=== PATIENT | female | born 1955 | race Caucasian/White ===

== ENCOUNTER 2018-02-26 11:56 | Emergency (ER) | payer OTHER ==
[2018-02-26 12:41] LABS: ADD MAN DIFF? NO
[2018-02-26 12:45] LABS: WHITE BLOOD COUNT 10.2 10^3/ul (4.8-10.8)
[2018-02-26 12:45] LABS: BASOPHILS % 0.3 % (0.0-2.0); EOSINOPHILS # 0.1 10^3/ul (0.0-0.5); EOSINOPHILS % 1.2 % (0.0-7.0); HEMATOCRIT 33.3 % (37.0-47.0); HEMOGLOBIN 10.7 g/dl (12.0-16.0); LYMPHOCYTES # 2.5 10^3/ul (0.8-2.9); MEAN CORPUSCULAR HEMOGLOBIN 28.6 pg (29.0-33.0); MEAN CORPUSCULAR HGB CONC 32.1 g/dl (32.0-37.0); MEAN PLATELET VOLUME 9.9 fl (7.4-10.4); MONOCYTE # 0.5 10^3/ul (0.3-0.9); MONOCYTES % 5.1 % (0.0-11.0); NEUTROPHIL # 7.1 10^3/ul (1.6-7.5); PLATELET COUNT 386 10^3/UL (140-415); RED BLOOD COUNT 3.74 10^6/ul (4.20-5.40); RED CELL DISTRIBUTION WIDTH 14.6 % (11.5-14.5)
[2018-02-26 13:17] LABS: INR 1.07; PT RATIO 1.1
[2018-02-26 13:18] LABS: PARTIAL THROMBOPLASTIN TIME 36.5 Sec (25.0-35.0)
[2018-02-26 13:19] LABS: ANION GAP 13 (8-16); BLOOD UREA NITROGEN 22 mg/dl (7-20); CALCIUM 9.4 mg/dl (8.4-10.2); CARBON DIOXIDE 29 mmol/L (21-31); CHLORIDE 107 mmol/L (97-110); CREATININE 0.81 mg/dl (0.44-1.00); GLUCOSE 100 mg/dl (70-220); POTASSIUM 4.2 mmol/L (3.5-5.1); SODIUM 145 mmol/L (135-144)
[2018-02-26 13:26] LABS: ETHANOL < 10.0 mg/dl
[2018-02-26 13:45] LABS: AMPHETAMINE/METHAMPHETAMINE NEGATIVE (NEGATIVE); BARBITURATES NEGATIVE (NEGATIVE); BENZODIAZEPINES NEGATIVE (NEGATIVE); CANNABINOIDS NEGATIVE (NEGATIVE); COCAINE NEGATIVE (NEGATIVE); OPIATES NEGATIVE (NEGATIVE)
[2018-02-26] MEDS: KETOROLAC 15 MG INJ IV (15:33)
== END 2018-02-26 15:50 | disposition home or self-care (01) ==
LOC: E/R 11:56
DX: M79.605 Pain in left leg (principal); D64.9 Anemia, unspecified; I10 Essential (primary) hypertension; R40.2142 Coma scale, eyes open, spontaneous, at arrival to emergency department; R40.2362 Coma scale, best motor response, obeys commands, at arrival to emergency department; R40.2252 Coma scale, best verbal response, oriented, at arrival to emergency department; R51 Headache
CPT/HCPCS: 36415; 70450; 80048; 80307; 85025; 85610; 85730; 93005; 96374; 99285-25

== ENCOUNTER 2018-02-28 12:18 | Observation (INO) | payer OTHER ==
[2018-02-28] MEDS: FAMOTIDINE 20 MG INJ IV ×2 (13:18→14:46)
[2018-02-28] MEDS: SOD CHLORIDE 0.9% 1,000 ML IV ×4 (13:19→18:30)
[2018-02-28] MEDS: ONDANSETRON 4 MG INJ IV ×2 (13:19→14:20)
[2018-02-28 13:42] LABS: ADD MAN DIFF? NO
[2018-02-28 13:46] LABS: BASOPHILS % 0.2 % (0.0-2.0); EOSINOPHILS % 0.1 % (0.0-7.0); HEMATOCRIT 32.6 % (37.0-47.0); HEMOGLOBIN 10.7 g/dl (12.0-16.0); LYMPHOCYTES # 1.1 10^3/ul (0.8-2.9); LYMPHOCYTES % 8.8 % (15.0-51.0); MEAN CORPUSCULAR HEMOGLOBIN 29.5 pg (29.0-33.0); MEAN CORPUSCULAR HGB CONC 32.8 g/dl (32.0-37.0); MEAN CORPUSCULAR VOLUME 89.8 fl (82.0-101.0); MEAN PLATELET VOLUME 10.9 fl (7.4-10.4); MONOCYTE # 0.1 10^3/ul (0.3-0.9); MONOCYTES % 1.1 % (0.0-11.0); NEUTROPHILS % 89.4 % (39.0-77.0); PLATELET COUNT 348 10^3/UL (140-415); RED BLOOD COUNT 3.63 10^6/ul (4.20-5.40); RED CELL DISTRIBUTION WIDTH 14.5 % (11.5-14.5)
[2018-02-28 13:46] LABS: WHITE BLOOD COUNT 12.3 10^3/ul (4.8-10.8)
[2018-02-28 14:21] LABS: INR 1.02; PROTIME 13.5 Sec (11.9-14.9); PT RATIO 1.1
[2018-02-28 14:22] LABS: PARTIAL THROMBOPLASTIN TIME 30.3 Sec (25.0-35.0)
[2018-02-28 14:30] LABS: ALANINE AMINOTRANSFERASE 30 IU/L (13-69); ALBUMIN 3.9 g/dl (3.3-4.9); ALKALINE PHOSPHATASE 126 IU/L (42-121); AMYLASE 78 U/L (11-123); ANION GAP 16 (8-16); ASPARTATE AMINO TRANSFERASE 34 IU/L (15-46); BILIRUBIN,INDIRECT 0.2 mg/dl (0-1.1); BILIRUBIN,TOTAL 0.2 mg/dl (0.2-1.3); BLOOD UREA NITROGEN 19 mg/dl (7-20); CALCIUM 8.8 mg/dl (8.4-10.2); CARBON DIOXIDE 23 mmol/L (21-31); CHLORIDE 106 mmol/L (97-110); CREATININE 0.56 mg/dl (0.44-1.00); GLUCOSE 113 mg/dl (70-220); LIPASE 81 U/L (23-300); POTASSIUM 4.5 mmol/L (3.5-5.1); SODIUM 140 mmol/L (135-144); TOTAL PROTEIN 8.2 g/dl (6.1-8.1)
[2018-02-28 14:45] LABS: TROPONIN-I < 0.012 ng/ml (0.000-0.120)
[2018-02-28] MEDS: METOCLOPRAMIDE 10 MG INJ IV (14:46)
[2018-02-28 15:44] LABS: ADD UMIC YES; UR ASCORBIC ACID 40 mg/dL (NEGATIVE); UR BACTERIA FEW /HPF (NONE SEEN); UR BILIRUBIN (Dip) NEGATIVE (NEGATIVE); UR BLOOD (Dip) 1+ mg/dL (NEGATIVE); UR CLARITY SLIGHTLY CLOUDY (CLEAR); UR COLOR YELLOW (YELLOW); UR GLUCOSE (Dip) NEGATIVE (NEGATIVE); UR KETONES (Dip) TRACE mg/dL (NEGATIVE); UR LEUKOCYTE ESTERASE (Dip) 3+ Leu/ul (NEGATIVE); UR MUCUS FEW /HPF (NONE SEEN); UR NITRITE (Dip) NEGATIVE (NEGATIVE); UR RBC 9 /HPF (0-5); UR SPECIFIC GRAVITY (Dip) 1.016 (1.003-1.030); UR SQUAMOUS EPITHELIAL CELL FEW /HPF (FEW); UR TOTAL PROTEIN (Dip) NEGATIVE (NEGATIVE); UR UROBILINOGEN (Dip) NEGATIVE (NEGATIVE); UR WBC 42 /HPF (0-5)
[2018-02-28] MEDS ORDERED: HYDROmorphONE 0.5 MG/0.5 ML SYG IV (16:00)
[2018-02-28] MEDS ORDERED: METOCLOPRAMIDE 10 MG INJ IV (16:00)
[2018-02-28] MEDS ORDERED: NA PHOSPHATE/BIPHOS 133 ML ENEMA PR (16:00)
[2018-02-28] MEDS ORDERED: NACL 0.9% 3 ML SYG IV (16:00)
[2018-02-28] MEDS ORDERED: LORAZEPAM 2 MG INJ IV (16:00)
[2018-02-28] MEDS ORDERED: hydrALAzine 20 MG INJ IV (16:00)
[2018-02-28] MEDS ORDERED: MAGNESIUM HYDROXIDE 30ML CUP PO (16:00)
[2018-02-28] MEDS ORDERED: morphine 2 MG INJ IV (16:00)
[2018-02-28] MEDS ORDERED: ALBUTEROL/IPRATROPIUM (NEB) 3 ML AMP HHN (16:00)
[2018-02-28] MEDS ORDERED: DOCUSATE SODIUM 100 MG CAP PO (16:00)
[2018-02-28] MEDS ORDERED: ACETAMINOPHEN 325 MG TAB PO ×2 (16:00)
[2018-02-28] MEDS ORDERED: HYDROCODONE/APAP (5/325) TAB PO (16:00)
[2018-02-28] MEDS ORDERED: NITROGLYCERIN (SL) 0.4 MG TAB SL (16:00)
[2018-02-28] MEDS ORDERED: traMADol 50 MG TAB PO (16:00)
[2018-02-28] MEDS ORDERED: ONDANSETRON 4 MG INJ IV ×2 (16:00)
[2018-02-28] MEDS: CEFTRIAXONE 1 GM/50 ML (PMX) 50 ML IVPB (16:15)
[2018-02-28 16:28] LABS: FREE T4 (FREE THYROXINE) 1.02 ng/dl (0.78-2.44)
[2018-02-28] MEDS ORDERED: ONDANSETRON INJ 8 MG in SOD CHLORIDE 0.9% 50 ML IV (16:30)
[2018-02-28] MEDS: HEPARIN 5,000 UNIT/0.5 ML VIAL SC (20:24)
[2018-02-28] MEDS: DOCUSATE SODIUM 100 MG CAP PO (20:25)
[2018-02-28] MEDS: GABAPENTIN 300 MG CAP PO (20:25)
[2018-02-28] MEDS: FERROUS SULFATE (EC) 325 MG TAB PO (20:25)
[2018-03-01] MEDS: SOD CHLORIDE 0.9% 1,000 ML IV ×2 (01:06→03:37)
[2018-03-01] MEDS: PANTOPRAZOLE 40 MG INJ IV (05:17)
[2018-03-01 06:51] LABS: ADD MAN DIFF? NO; BASOPHILS % 0.4 % (0.0-2.0); EOSINOPHILS # 0.1 10^3/ul (0.0-0.5); EOSINOPHILS % 0.9 % (0.0-7.0); HEMATOCRIT 30.7 % (37.0-47.0); HEMOGLOBIN 9.8 g/dl (12.0-16.0); LYMPHOCYTES # 3.4 10^3/ul (0.8-2.9); LYMPHOCYTES % 32.9 % (15.0-51.0); MEAN CORPUSCULAR HGB CONC 31.9 g/dl (32.0-37.0); MEAN CORPUSCULAR VOLUME 90.8 fl (82.0-101.0); MEAN PLATELET VOLUME 10.7 fl (7.4-10.4); MONOCYTE # 0.5 10^3/ul (0.3-0.9); MONOCYTES % 4.8 % (0.0-11.0); NEUTROPHIL # 6.3 10^3/ul (1.6-7.5); NEUTROPHILS % 60.7 % (39.0-77.0); PLATELET COUNT 354 10^3/UL (140-415); RED BLOOD COUNT 3.38 10^6/ul (4.20-5.40); RED CELL DISTRIBUTION WIDTH 14.6 % (11.5-14.5)
[2018-03-01 06:51] LABS: WHITE BLOOD COUNT 10.4 10^3/ul (4.8-10.8)
[2018-03-01 07:29] LABS: CHOLESTEROL 129 mg/dl (100-200)
[2018-03-01 07:29] LABS: ANION GAP 15 (8-16); BLOOD UREA NITROGEN 14 mg/dl (7-20); CALCIUM 8.8 mg/dl (8.4-10.2); CARBON DIOXIDE 23 mmol/L (21-31); CHLORIDE 112 mmol/L (97-110); CHOL/HDL RATIO 2.5 RATIO; CREATININE 0.64 mg/dl (0.44-1.00); GLUCOSE 94 mg/dl (70-220); HDL CHOLESTEROL 50 mg/dl (35-98); LDL CHOLESTEROL,CALCULATED 66 mg/dl; MAGNESIUM 1.9 mg/dl (1.7-2.5); PHOSPHORUS 3.6 mg/dl (2.5-4.9); POTASSIUM 4.1 mmol/L (3.5-5.1); SODIUM 146 mmol/L (135-144); TRIGLYCERIDES 65 mg/dl (0-149)
[2018-03-01] MEDS: FERROUS SULFATE (EC) 325 MG TAB PO (08:45)
[2018-03-01] MEDS: SPIRONOLACTONE 25 MG TAB PO (08:45)
[2018-03-01] MEDS: DOCUSATE SODIUM 100 MG CAP PO (08:45)
[2018-03-01] MEDS: ATENOLOL 25 MG TAB PO (08:46)
[2018-03-01] MEDS: HYDROCHLOROTHIAZIDE 25 MG TAB PO (08:46)
[2018-03-01] MEDS: GABAPENTIN 300 MG CAP PO ×2 (08:46→13:33)
[2018-03-01] MEDS: HEPARIN 5,000 UNIT/0.5 ML VIAL SC (08:50)
[2018-03-01 08:52] LABS: HEMOGLOBIN A1C 5.7 % (0-5.9)
[2018-03-01] MEDS: CEFTRIAXONE 1 GM/50 ML (PMX) 50 ML IVPB (16:39)
== END 2018-03-01 17:46 | disposition home or self-care (01) ==
LOC: E/R 12:18 → PP2 16:00
DX: E86.0 Dehydration (principal); I10 Essential (primary) hypertension; G62.9 Polyneuropathy, unspecified
CPT/HCPCS: 74018; 80048; 80053; 80061; 81001; 82150; 83036; 83605; 83690; 83735; 84100; 84439; 84443; 84484; 85025; 85610; 85730; 87086; 93005; 96361; 96365; 96375; 96376; 99285-25; G0378

== ENCOUNTER 2019-01-28 07:23 | Emergency (ER) | payer MEDICAID, OTHER ==
[2019-01-28 08:21] LABS: ADD MAN DIFF? NO
[2019-01-28 08:25] LABS: WHITE BLOOD COUNT 8.4 10^3/ul (4.8-10.8)
[2019-01-28 08:25] LABS: BASOPHILS % 0.5 % (0.0-2.0); EOSINOPHILS # 0.2 10^3/ul (0.0-0.5); HEMATOCRIT 32.3 % (37.0-47.0); HEMOGLOBIN 10.6 g/dl (12.0-16.0); LYMPHOCYTES # 1.7 10^3/ul (0.8-2.9); LYMPHOCYTES % 20.7 % (15.0-51.0); MEAN CORPUSCULAR HEMOGLOBIN 29.4 pg (29.0-33.0); MEAN CORPUSCULAR HGB CONC 32.8 g/dl (32.0-37.0); MEAN CORPUSCULAR VOLUME 89.5 fl (82.0-101.0); MEAN PLATELET VOLUME 10.2 fl (7.4-10.4); MONOCYTE # 0.4 10^3/ul (0.3-0.9); MONOCYTES % 4.4 % (0.0-11.0); PLATELET COUNT 306 10^3/UL (140-415); RED BLOOD COUNT 3.61 10^6/ul (4.20-5.40); RED CELL DISTRIBUTION WIDTH 14.6 % (11.5-14.5)
[2019-01-28 08:46] LABS: ALANINE AMINOTRANSFERASE 13 IU/L (13-69); ALBUMIN 3.8 g/dl (3.3-4.9); ALKALINE PHOSPHATASE 116 IU/L (42-121); ASPARTATE AMINO TRANSFERASE 17 IU/L (15-46); BILIRUBIN,INDIRECT 0.3 mg/dl (0-1.1); BILIRUBIN,TOTAL 0.3 mg/dl (0.2-1.3); TOTAL PROTEIN 7.6 g/dl (6.1-8.1)
[2019-01-28 08:49] LABS: ANION GAP 6 (5-13); BLOOD UREA NITROGEN 7 mg/dl (7-20); CALCIUM 9.5 mg/dl (8.4-10.2); CARBON DIOXIDE 29 mmol/L (21-31); CHLORIDE 108 mmol/L (97-110); CREATININE 0.55 mg/dl (0.44-1.00); Estimated GFR > 60 mL/min (>60); GLUCOSE 95 mg/dl (70-220); SODIUM 143 mmol/L (135-144)
[2019-01-28 08:57] LABS: INR 1.11; PROTIME 14.4 Sec (11.9-14.9); PT RATIO 1.1
[2019-01-28 08:59] LABS: B-TYPE NATRIURETIC PEPTIDE 92 PG/ML (0-125); TROPONIN-I < 0.012 ng/ml (0.000-0.120)
== END 2019-01-28 11:39 | disposition home or self-care (01) ==
LOC: E/R 07:23
DX: R60.0 Localized edema (principal); I10 Essential (primary) hypertension; D64.9 Anemia, unspecified; R07.9 Chest pain, unspecified; Z59.0 Homelessness
CPT/HCPCS: 36415; 71045; 80048; 80076; 83880; 84484; 85025; 85610; 93005; 99285-25

== ENCOUNTER 2019-04-18 20:29 | Emergency (ER) | payer SELFPAY, MEDICAID | END 2019-04-19 00:52 | disposition left against medical advice (07) | LOC: E/R 20:29 | DX: Z53.21 Procedure and treatment not carried out due to patient leaving prior to being seen by health care provider (principal) ==

== ENCOUNTER 2019-06-24 08:43 | Emergency (ER) | payer MEDICARE, MEDICAID | END 2019-06-24 10:00 | disposition home or self-care (01) | LOC: FTE 08:43 | DX: H61.22 Impacted cerumen, left ear (principal); I10 Essential (primary) hypertension; Z87.891 Personal history of nicotine dependence | CPT/HCPCS: 69209; 99283-25 ==